=== PATIENT | female | born 1990 | race African-American/Black ===

== ENCOUNTER 2021-02-12 20:55 | Emergency (ER) | payer OTHER, SELFPAY ==
[2021-02-12] VITALS (8 sets, daily range): BP systolic 116–160; BP diastolic 74–100; PULSE 80–96; RESP 19–25; TEMP 36.9; O2SAT 99–100
--- NOTE | 2021-02-12 21:05 | ECG_ITS ---
Measurements Intervals [place] Rate: 79 P: 51 MD: 129 QRS: 3 QRSD: 93 T: 5 QT: 356 QTc: 409 Interpretive Statements SINUS RHYTHM BORDERLINE T WAVE ABNORMALITY- ANTERIOR LEADS BASELINE ARTIFACT- V1, V3-V6 BORDERLINE ECG Electronically Signed On 02-13-2021 6:28:46 CDT by Sai Shelton D.O.
--- NOTE | 2021-02-12 21:09 | ED.SYNCOPE ---
HPI - Syncope General Chief Complaint: Dizziness Stated Complaint: weakness and dizziness History of Present Illness HPI narrative: 30 yo female brought in by EMS c/o dizziness. She reportedly became very light headed and felt like she was going to pass out. This was accompanied by feeling warm, blurry vision, and mild nausea. Unsure if she has been drinking enough fluids. Noted to be hypertensive by EMS. Related Data Home Medications Medication Instructions Recorded Confirmed albuterol mcg INHALATION 02/12/21 Allergies Allergy/AdvReac Type Severity Reaction Status Date / Time No Known Allergies Allergy Verified 02/12/21 22:17 Review of Systems Review of Systems: All systems reviewed & are unremarkable except as noted in HPI and below Constitutional: Constitutional: Denies fever(s) Cardiovascular: Cardiovascular: Denies chest pain Respiratory: Respiratory: Denies dyspnea [facility] Social History Social History Gender identity (if verbalized by the patient): Female Sexual Orientation (if Verbalized by the Patient): Straight or Heterosexual Exam Const: General: no acute distress and alert Nutritional Appearance: obese Orientation/consciousness: patient oriented x3 HENMT: Head: normal to inspection Ears: TM's normal bilaterally Eyes: Pupils: Equal, round and reactive pupils present EOM: EOMs intact bilaterally Neck: Neck: normal visual inspection Chest: Chest palpation & inspection: no tenderness Resp: Effort & Inspection: normal respiratory effort Auscultation: clear to auscultation bilaterally, no rales, no rhonchi and no wheezes Cardio: Jugular venous distension: no JVD Rate: regular rate Rhythm: regular rhythm Heart sounds: no murmurs GI: Inspection: non-distended GI Palp: Yes Soft to palpation and No Tenderness to palpation present (GI) Skin: General skin exam: normal color Neuro: General: patient oriented x3 and moves all extremities Speech: normal speech Extrem: General: no edema Psych: Appearance: well kempt Affect: normal affect Course Vital Signs Vital signs: Vital Signs Temperature 36.9 C 02/12/21 21:10 Pulse Rate 93 02/12/21 21:10 Respiratory Rate 23 H 02/12/21 21:10 Pulse Oximetry 100 02/12/21 21:10 Temperature 36.9 C 02/12/21 21:10 Pulse Rate 80 02/13/21 00:45 Respiratory Rate 20 02/13/21 00:45 Blood Pressure 116/82 02/13/21 00:45 Pulse Oximetry 100 02/13/21 00:45 MDM - Syncope Differential Diagnosis Differential diagnosis: Likely syncope due to orthostatic hypotension, vasovagal syncope and dehydration Medical Records Attestation: I reviewed the patient's medical records. Lab Data Result diagrams: 02/12/21 21:21 02/12/21 21:21 Labs: Lab Results 02/12/21 02/12/21 Range/Units 21:21 21:21 WBC 11.0 H (4.5-10.0) K/mm3 RBC 4.32 (4.2-5.4) M/mm3 Hgb 12.7 (12.0-15.0) g/dL Hct 40.3 (37.0-47.0) % MCV 93.3 (80-100) fl MCH 29.4 (26-34) pg MCHC 31.5 L (32-36) g/dl RDW 14.1 (11.5-14.5) % Plt Count 231 (150-375) k/mm3 MPV 11.8 H (7.4-10.4) fl Immature Gran % (Auto) 0.5 (0-0.5) % Neut % (Auto) 60.4 (45.5-73.1) % Lymph % (Auto) 30.6 (18.3-44.2) % [place] % (Auto) 5.6 (2.6-8.5) % Eos % (Auto) 2.3 (0-4.4) % Baso % (Auto) 0.6 (0.2-1.2) % Lymph # (Auto) 3.37 H (0.9-3.2) K/mm3 [place] # (Auto) 0.6 (0.1-0.6) K/mm3 Eos # (Auto) 0.3 (0-0.3) K/mm3 Baso # (Auto) 0.1 (0.0-0.1) K/mm3 Abs Immat Gran (auto) 0.05 H (0.00-0.031) K/mm3 Absolute Neuts (auto) 6.7 (1.3-6.7) K/mm3 Absolute Nucleated RBC 0.0 (0.0-0.012) K/mm3 Nucleated RBC % 0.0 (0.0-0.2) % Sodium 139 (137-145) mmol/L Potassium 3.8 (3.4-5.0) mmol/L Chloride 110 H (98-107) mmol/L Carbon Dioxide 22 (22-30) mmol/L Anion Gap 7 L (8-16) mmol/L BUN 10 (7-17) mg/dL Creatinine 0.80 (0.7-1
[2021-02-12 21:28] LABS: Basophils Absolute Auto 0.1 K/mm3 (0.0-0.1); Basophils Percent Auto 0.6 % (0.2-1.2); Eosinophils Absolute Auto 0.3 K/mm3 (0-0.3); Eosinophils Percent Auto 2.3 % (0-4.4); Hematocrit 40.3 % (37.0-47.0); Hemoglobin 12.7 g/dL (12.0-15.0); Immature Granulocyte Absolute 0.05 K/mm3 (0.00-0.031); Immature Granulocyte Percent A 0.5 % (0-0.5); Lymphocytes Absolute Auto 3.37 K/mm3 (0.9-3.2); Lymphocytes Percent Auto 30.6 % (18.3-44.2); Mean Corpuscular HGB Conc 31.5 g/dl (32-36); Mean Corpuscular Hemoglobin 29.4 pg (26-34); Mean Corpuscular Volume 93.3 fl (80-100); Mean Platelet Volume 11.8 fl (7.4-10.4); Monocytes Absolute Auto 0.6 K/mm3 (0.1-0.6); Monocytes Percent Auto 5.6 % (2.6-8.5); Neutrophils Absolute Auto 6.7 K/mm3 (1.3-6.7); Neutrophils Percent Auto 60.4 % (45.5-73.1); Platelet Count Result 231 k/mm3 (150-375); Red Blood Count 4.32 M/mm3 (4.2-5.4); Red Cell Distribution Width 14.1 % (11.5-14.5)
[2021-02-12 21:41] LABS: Anion Gap 7 mmol/L (8-16); Blood Urea Nitrogen 10 mg/dL (7-17); Calcium 9.1 mg/dL (8.4-10.2); Carbon Dioxide 22 mmol/L (22-30); Chloride 110 mmol/L (98-107); Estimated CRCL calculation 116 ml/min; Estimated Glomerular Filt Rate > 60; Glucose 90 mg/dL (65-105); Potassium 3.8 mmol/L (3.4-5.0); Sodium 139 mmol/L (137-145)
[2021-02-12] MEDS: SODIUM CHLORIDE 0.9% IV 1,000 ML 999 ML IV CONT (22:13)
[2021-02-13 00:45] VITALS: BP 116/82; PULSE 80; RESP 20; O2SAT 100
== END 2021-02-13 00:46 | disposition home or self-care (01) ==
PROVIDERS: Emergency Provider Emergency Medicine
DX: R55 Syncope and collapse (principal)
CPT/HCPCS: 36415; 80048; 81025; 85025; 93005; 96360; 99283; J7030